=== PATIENT | female | born 1995 | race Caucasian/White ===

== ENCOUNTER 2018-05-08 06:00 | Day surgery (SDC) | payer BC, OTHER ==
[2018-05-08] VITALS (12 sets, daily range): BP systolic 104–144; BP diastolic 76–99
[~2018-05-08] VITALS: Ht 162.6 cm; Wt 59.0 kg
[2018-05-08] MEDS ORDERED: ENSKYCE1 EACH PO (06:48)
[2018-05-08] MEDS ORDERED: VENLAFAXINE HCL25 MG ORAL (06:48)
[2018-05-08] MEDS ORDERED: AMITIZA24 MCG ORAL (06:48)
[2018-05-08] MEDS ORDERED: Dyna-Hex 2% Top Sol 2oz TOPIC ONE (07:04)
[2018-05-08] MEDS ORDERED: Propofol 200mg/20ml IV ONE (07:09)
[2018-05-08] MEDS ORDERED: Lidocaine 1% MPF 10mg/ml 5ml ONE (07:09)
[2018-05-08] MEDS ORDERED: Midazolam 2mg/2ml Inj ONE (07:09)
[2018-05-08] MEDS ORDERED: fentaNYL 100 mcg/2 mL IV ONE ×3 (07:09→08:39)
--- NOTE | 2018-05-08 07:18 | Pre-Procedure Note/Attestation ---
Pre-Procedure Note/Attestation Complete Prior to Procedure Planned Procedure: bilateral Indications for Procedure Pre-Operative Diagnosis: gender dysphoria Attestation I attest that I discussed the nature of the procedure; its benefits; risks and complications; and alternatives (and the risks and benefits of such alternatives ), prior to the procedure, with the patient (or the patient's legal sales representative gas service). I attest that, if there was a reasonable possibility of needing a blood transfusion, the patient (or the patient's legal sales representative gas service) was given the [facility] standardized written summary, pursuant to the [place] Blood Safety Act ([place] Health and Safety Code # 1645, as amended). I attest that I re-evaluated the patient just prior to the surgery and that there has been no change in the patient's H&P, except as documented below: Bareden Tom MD May 08, 2018 07:18
[2018-05-08] MEDS ORDERED: Zemuron 50mg/5ml Inj IV ONE (07:27)
[2018-05-08] MEDS ORDERED: LR 1000ml ONE (07:30)
--- NOTE | 2018-05-08 07:34 | Anethesia Preoperative Eval ---
Anesthesia Pre-op PMH/ROS General Date of Evaluation: May 08, 2018 Time of Evaluation: 07:15 Anesthesiologist: Nell Hernandez CRNA ASA Score: ASA 2 Mallampati Score Class I : Soft palate, uvula, fauces, pillars visible Class II: Soft palate, uvula, fauces visible Class III: Soft palate, base of uvula visible Class IV: Only hard plate visible Mallampati Classification: Class I Surgeon: Negro Diagnosis: Gender Identity disorder Surgical Procedure: (B) mastectomy Anesthesia History: none Family History: no anesthesia problems Allergies: Coded Allergies: No Known Allergies (Unverified , 05/07/18) Medications: see eMAR Past Medical History Cardiovascular: Denies: HTN, CAD, VA, valve dz, arrhythmia, other Pulmonary: Denies: asthma, COPD, ELIDA, other Gastrointestinal/Genitourinary: Denies: GERD, CRI, ESRD, other Neurologic/Psychiatric: Reports: depression/anxiety; Denies: dementia, CVA, TIA, other Endocrine: Denies: DM, hypothyroidism, steroids, other HEENT: Reports: other - VC dysfunction, stress induced per patient; Denies: cataract (L), cataract (R), glaucoma, [place] (L), [place] (R) Hematology/Immune: Denies: anemia, DVT, bleeding disorder, other Musculoskeletal/Integumentary: Denies: OA, RA, DJD, DDD, edema, other Other: other - Gender Identity disorder, transgender male PMH Narrative: as above PSxH Narrative: Upper endoscopy, wisdom teeth extraction Anesthesia Pre-op Phys. Exam Physician Exam Last Vital Signs Date Time Temp Pulse Resp B/P (MAP) Pulse Ox O2 Delivery O2 Flow Rate FiO2 05/08/18 06:44 Room Air 05/08/18 06:42 97 98 18 119/76 99 97.0 Constitutional: NAD Neurologic: CN 2-12 intact Cardiovascular: RRR Respiratory: CTA Gastrointestinal: S/NT/ND Airway Exam Mallampati Score: Class I MO: full Neck: no issues TMD: > 3 FB ROM: full Teeth: intact, other - permanent lower retainer Dentures: no upper, no lower Anesthesia Pre-op A/P Labs See chart; WNL Urine Test Test 05/08/18 06:10 Urine HCG, Qualitative Negative (NEGATIVE) Risk Assessment & Plan Assessment: ASA 2 ok to proceed Plan: GETA Status Change Before Surgery: Nell Smiley CRNA May 08, 2018 07:34
[2018-05-08] MEDS: Lidocaine 1% 10mg/ml/EPI 0.01mg/ml 50ml INJ ONE (07:40)
[2018-05-08] MEDS ORDERED: Bupivacaine 0.5% Inj 30 ml vial INJ ONE (08:21)
[2018-05-08] MEDS ORDERED: DiphenhydrAMINE 50mg/ml Inj IVP PRN (08:30)
[2018-05-08] MEDS ORDERED: Hydromorphone 0.5mg/0.5ml inj IVP PRN (08:30)
[2018-05-08] MEDS ORDERED: Dexamethasone 4mg/ml vial ONE (08:58)
[2018-05-08] MEDS ORDERED: Neostigmine 1mg/ml 10ml Inj ONE (08:59)
[2018-05-08] MEDS ORDERED: Glycopyrrolate 0.2mg/ml 1ml Vial ONE (08:59)
[2018-05-08] MEDS: Bupivacaine 0.5% Inj 30 ml vial INJ ONE (09:29)
[2018-05-08] MEDS: Muri-Lube ONE (09:29)
[2018-05-08] MEDS ORDERED: Bacitracin Oint 15gm Tube TOPIC ONE (10:03)
[2018-05-08] MEDS: Bacitracin Oint 15gm Tube TOPIC ONE (10:27)
--- NOTE | 2018-05-08 10:50 | Discharge Instructions ---
Discharge Instructions Discharge Instructions Follow up with: Dr. Tom May 13, 2018 Diet: regular Resume Normal Activity?: Yes Activity: ambulate For Surgical Patients Dressing Care: keep dry and clean May shower: No - sponge bathe only For Congestive Heart Failure Reminder Report to your physician any weight gain of 5 pounds or more in one week. Braeden Tom MD May 08, 2018 10:50
--- NOTE | 2018-05-08 10:50 | Operative Note - PDOC ---
Operative Note Operative Note Date of Operation/Procedure: May 08, 2018 Pre-op Diagnosis: gender dysphoria Procedure: bilateral mastectomy with nipple areola graft reconstruction utilizing full thickness grafts Post-op Diagnosis: same as pre-op Surgeon: Negro Psychology Technician: Akash Anesthesia: general Specimen: yes - 1) right breast, 2) left breast Complications: none Condition: stable Estimated Blood Loss: volume - 50 cc Drains: PEARL - x2 Implant(s) used?: No Braeden Tom MD May 08, 2018 10:50
--- NOTE | 2018-05-08 10:53 | Immediate Post-Op Evaluation ---
Immediate Post-Op Evalulation Immediate Post-Op Evalulation Procedure: (B) mastectomy, nipple reconstruction Date of Evaluation: May 08, 2018 Time of Evaluation: 10:44 IV Fluids: LR 1400 ml Estimated Blood Loss: 50 ml Urinary Output: no moncada Blood Pressure Systolic: 136 Blood Pressure Diastolic: 95 Pulse Rate: 131 Respiratory Rate: 20 O2 Sat by Pulse Oximetry: 100 Temperature (Fahrenheit): 97.4 Pain Score (1-10): 2 Nausea: No Vomiting: No Complications none Patient Status: awake, reacts, patent, extubated Hydration Status: adequate Drug: cefazolin 1000 mg Given Within 1 Hr of Incision: Yes Time Given: 07:40 Nell Hernandez CRNA May 08, 2018 10:53
--- NOTE | 2018-05-08 15:16 | 48 Hour Post Anesthesia Eval ---
Post Anesthesia Evaluation Procedure: (B) mastectomy, nipple reconstruction Date of Evaluation: May 08, 2018 Time of Evaluation: 13:00 Blood Pressure Systolic: 133 0: 82 Pulse Rate: 122 Respiratory Rate: 20 Temperature (Fahrenheit): 99 O2 Sat by Pulse Oximetry: 97 Airway: patent Nausea: No Vomiting: No Pain Intensity: 2 Hydration Status: adequate Mental Status/LOC: patient returned to baseline Follow-up Care/Observations: Pt remains tachycardic despite fluid bolus, pt awake, alert, denies discomfort. BBS =CTA, heart regular rhythm, tachycardic. Pt expressed desire to be discharged to home. This provider instructed patient to cough/deep breath exercises at home, hydration, return to ER if any issues with CP, SOB, dizziness or persistent fever Post-Anesthesia Complications: see above Follow-up care needed: patient intructions given - see above Nell Hernandez CRNA May 08, 2018 15:16
[2018-05-08] MEDS ORDERED: Norco 5mg/325mg tab ORAL PRN (15:36)
[2018-05-08] MEDS ORDERED: D5 1/2NS 1,000 ML IV SCH (15:36)
[2018-05-08] MEDS ORDERED: HYDROmorphone 1mg/ml Carpuject SUBQ PRN (15:36)
[2018-05-08] MEDS ORDERED: Tylenol #3 tab (300mg/30mg) ORAL PRN (15:37)
--- NOTE | 2018-05-08 18:15 | Operative Note - Dictated ---
DATE OF OPERATION: 05/08/2018 PREOPERATIVE DIAGNOSIS: Gender dysphoria. POSTOPERATIVE DIAGNOSIS: Gender dysphoria. PROCEDURES: 1. Bilateral mastectomy. 2. Bilateral nipple areola reconstruction with free full-thickness nipple areola grafts (each graft 2.5 x 2.5 cm). SURGEON: Braeden Tom M.D. PLANNING CONSULTANT: Dr. Mani Bustos. ANESTHESIA: General. ESTIMATED BLOOD LOSS: 50 mL. SPECIMENS: 1. Right breast. 2. Left breast. DRAINS: A 15-British Max x2. COMPLICATIONS: None. CONDITION TO RECOVERY ROOM: Stable. INDICATION FOR PROCEDURE: This is a very pleasant 22-year-old trans male, who desires top surgery mastectomy as part of his transition. He has the appropriate letter of recommendation from his therapist and meets all WPATH criteria for top surgery. I have discussed the risks, benefits, and alternatives to the procedure with him including, but not limited to, bleeding, infection, scarring, nerve injury, asymmetry, contour deformity, hematoma, seroma, loss of nipple sensation, loss of nipple graft, and need for additional surgery including revisions. I discussed the orientation of the incisions and the unpredictable nature of scarring. No guarantees were made regarding the outcome. All of his questions have been answered to the best of my ability. He verbalized understanding with everything that we discussed and wishes to proceed. PROCEDURE: The patient was identified in the preoperative holding area and marked in the standing position. He was then brought to the operating room and he was placed in the supine position on the operating room table with his arms extended on arm boards. All bony prominences were adequately padded. Sequential compression devices were placed and intravenous antibiotics were administered. After induction of anesthesia, the patient's chest was prepped and draped in sterile fashion. Starting on the right chest first, the nipple areola complex was placed on manual stretch and a chilkat measuring 2.5 cm in diameter was drawn out centered around the nipple. Next, the subdermal plane within the markings was infiltrated with 3 mL of 1% lidocaine with epinephrine. Next, I used a #15 blade scalpel to make the incision on the nipple areola complex and then proceeded to harvest a full-thickness nipple areola graft. The graft was subsequently defatted, wrapped in wet gauze, and placed on the back table. I then used a #10 blade scalpel to make the inframammary fold incision. Dissection proceeded down through the subcutaneous tissues until the level of the pectoralis major fascia was reached. After this was done, I then made the superior breast incision using a #10 blade scalpel and dissected down to the level of Parisa's fascia. Allis clamps were then used to retract the skin and a plane of dissection was created between the subcutaneous tissue and breast parenchyma in a superior direction towards the level of the clavicle. After this was done, I then proceeded to elevate the breast tissue off of the pectoralis major fascia proceeding from a medial to a lateral direction. Hemostasis was achieved and the wound was irrigated with saline. A 15-British Max drain was placed within the chest and brought out through a separate stab incision and secured using 2-0 silk suture. The skin patricia were then used to temporarily reapproximate the skin. I shifted my attention to the contralateral side where the identical procedure was performed. Next, the patient was sat up on the operating room table and it appeared that he had very reasonable symmetry between the 2 sides of the chest. I then used a marking pen to draw out the proposed location of the new nipple areola complex on each side of the chest and positioning was confirmed using direct measurements to ensure symmetry. He was then placed back in the supine position. On each side of the chest, the skin patricia were removed and the Parisa's fascia layer was reapproximated with #0 Vicryl suture followed by 3-0 PDS suture for the dermal layer and a running 3-0 Monocryl suture for the skin. Next, each of the markings corresponding to the new location of the nipple-areolar complex were incised using a #15 blade scalpel and the intervening skin was de-epithelialized. Each full-thickness nipple areola graft was brought out to the appropriate side of the chest and the nipple areola reconstruction was performed by insetting each graft using a running 5-0 fast absorbing suture. Next, several 2-0 silk suture ties were placed around the periphery of each nipple areolar complex. A skin graft bolster was fashioned and secured into place using the 2-0 silk ties. Next, 10 mL of 0.5% plain Marcaine were injected into each incision for a total of 20 mL. Sterile dressings were applied. The patient tolerated the procedure well and was sent to the recovery room in stable condition. All instrument, sharp, and sponge counts were correct at the conclusion of the case. Braeden Tom M.D. DR: ANITA JOB#: [id number] CC: LEXI
== END 2018-05-08 13:30 | disposition home or self-care (01) ==
LOC: SUR 06:00
DX: F64.9 Gender identity disorder, unspecified (principal); F32.9 Major depressive disorder, single episode, unspecified; F41.9 Anxiety disorder, unspecified
CPT/HCPCS: 81025; 94003; 94150; J2250; J2405; J2710